=== PATIENT | female | born 1945 | race Two or more races ===

== ENCOUNTER 2019-01-24 12:20 | Outpatient (CLI) | payer OTHER | END 2019-01-24 12:22 | disposition home or self-care (01) | LOC: SONOGRAMA 12:20 → MAMO-SONO 13:45 | DX: M25.571 Pain in right ankle and joints of right foot (principal) ==

== ENCOUNTER 2019-02-07 08:37 | Outpatient (CLI) | payer OTHER | END 2019-02-07 08:43 | disposition home or self-care (01) | LOC: MRI 08:37 | DX: M25.561 Pain in right knee (principal) | CPT/HCPCS: 73721 ==

== ENCOUNTER 2019-03-09 10:25 | Outpatient (CLI) | payer OTHER | END 2019-03-09 10:27 | disposition home or self-care (01) | LOC: RAD 10:25 | DX: M17.0 Bilateral primary osteoarthritis of knee (principal) ==

== ENCOUNTER 2019-03-11 07:48 | Outpatient (CLI) | payer OTHER | END 2019-03-11 07:51 | disposition home or self-care (01) | LOC: SONOGRAMA 07:48 → MAMO-SONO 08:15 | DX: M75.101 Unspecified rotator cuff tear or rupture of right shoulder, not specified as traumatic (principal) ==

== ENCOUNTER 2020-10-03 09:27 | Outpatient (CLI) | payer OTHER | END 2020-10-03 09:40 | disposition home or self-care (01) | LOC: MAMO-SONO 09:27 | PROVIDERS: ATTEND Physical Medicine & Rehabilitation | DX: M75.22 Bicipital tendinitis, left shoulder (principal); M25.512 Pain in left shoulder ==

== ENCOUNTER 2023-11-19 11:25 | Outpatient (CLI) | payer OTHER | END 2023-11-19 11:38 | disposition home or self-care (01) | LOC: RAD 11:25 | PROVIDERS: ATTEND Physical Medicine & Rehabilitation | DX: M54.50 Low back pain, unspecified (principal); M54.16 Radiculopathy, lumbar region; M54.6 Pain in thoracic spine | CPT/HCPCS: 72148 ==

== ENCOUNTER → 2023-11-26 09:35 | Outpatient (CLI) | payer OTHER | END | disposition home or self-care (01) | LOC: NUCLEAR 09:35 | PROVIDERS: ATTEND Physical Medicine & Rehabilitation | DX: I77.9 Disorder of arteries and arterioles, unspecified (principal) ==

== ENCOUNTER 2023-11-27 08:13 | Outpatient (CLI) | payer OTHER | END 2023-11-27 08:14 | disposition home or self-care (01) | LOC: NUCLEAR 08:13 | PROVIDERS: ATTEND Physical Medicine & Rehabilitation | DX: I73.9 Peripheral vascular disease, unspecified (principal); I87.2 Venous insufficiency (chronic) (peripheral) ==

== ENCOUNTER 2024-12-21 07:41 | Outpatient (CLI) | payer OTHER | END 2024-12-21 08:11 | disposition home or self-care (01) | LOC: MRI 07:41 | PROVIDERS: ATTEND Neuromusculoskeletal Medicine & OMM | DX: R55 Syncope and collapse (principal); R20.2 Paresthesia of skin; I72.9 Aneurysm of unspecified site; I65.09 Occlusion and stenosis of unspecified vertebral artery; I65.29 Occlusion and stenosis of unspecified carotid artery; Q28.2 Arteriovenous malformation of cerebral vessels | CPT/HCPCS: 70544; 70551 ==

== ENCOUNTER 2025-02-10 07:27 | Outpatient (CLI) | payer OTHER | END 2025-02-10 07:37 | disposition home or self-care (01) | LOC: TOM 07:27 | PROVIDERS: ATTEND Neuromusculoskeletal Medicine & OMM | DX: I65.21 Occlusion and stenosis of right carotid artery (principal) | CPT/HCPCS: 70498; Q9965 ==

== ENCOUNTER 2025-02-28 09:02 | Outpatient (CLI) | payer OTHER | END 2025-02-28 09:05 | disposition home or self-care (01) | LOC: MRI 09:02 | PROVIDERS: ATTEND Neuromusculoskeletal Medicine & OMM | DX: M51.26 Other intervertebral disc displacement, lumbar region (principal); M51.360 Other intervertebral disc degeneration, lumbar region with discogenic back pain only | CPT/HCPCS: 72148 ==